=== PATIENT | male | born 1960 | race Caucasian/White ===

== ENCOUNTER → 2016-11-25 | Outpatient (CLI) | payer BC ==
[2016-11-25 09:35] LABS: BASO % 0.6 %; BASO ABS # 0.03 K/uL (0-0.2); COMPLETE YES; EOS % 7.2 %; HEMATOCRIT 44.1 % (42-52); IG% 0.2 %; LYMPH % 36.6 %; LYMPH ABS # 1.97 K/uL (1.2-3.4); MEAN CELL VOLUME 83.8 fL (80-100); MEAN CORPUSCULAR HGB CONC 35.8 g/dl (32-36); MONO % 8.7 %; NEUT % 46.7 %; PLATELET COUNT 211 K/uL (130-400); RED BLOOD COUNT 5.26 M/uL (4.7-6.1); WHITE BLOOD COUNT 5.38 K/uL (4.8-10.8)
[2016-11-25 09:56] LABS: ALT/SGPT 32 U/L (12-78); AST/SGOT 33 U/L (15-37); BLOOD UREA NITROGEN 19 mg/dl (7-18); BUN/CREATININE RATIO 16.2 (10-20); CALCIUM 8.7 mg/dl (8.5-10.1); CARBON DIOXIDE 26 mmol/L (21-32); CHLORIDE 109 mmol/L (98-107); CHOLESTEROL 136 mg/dl (0-200); GLUCOSE 90 mg/dl (70-99); POTASSIUM 4.3 mmol/L (3.5-5.1); SODIUM 142 mmol/L (136-145)
[2016-11-25 10:00] LABS: ALB/GLOB RATIO 1.2 (0.9-2); ALKALINE PHOSPHATASE 84 U/L (45-117); CHOLESTEROL/HDL RATIO 3.1; HDL CHOLESTEROL 44 mg/dl; LDL CHOLESTEROL CALCULATED 77 mg/dl; TRIGLYCERIDES 77 mg/dl (0-150); VERY LOW DENSITY LIPOPROT CALC 15 mg/dl
== END | disposition home or self-care (01) ==
LOC: C.LAB 07:59
PROVIDERS: ATTEND Internal Medicine
DX: Z12.5 Encounter for screening for malignant neoplasm of prostate (principal); E78.5 Hyperlipidemia, unspecified

== ENCOUNTER → 2016-11-28 | Outpatient (CLI) | payer BC ==
[~2016-11-28] MED LIST: OPTIRAY 320 IV PRN
--- NOTE | 2016-11-28 14:08 | DIAGNOSTIC IMAGING REPORT ---
ABDOMEN AND PELVIS CT WITH IV AND ORAL CONTRAST CT DOSE: 531.37 mGycm HISTORY: Pain pelvic pain TECHNIQUE: Multiaxial CT images of the abdomen and pelvis were performed following the use of intravenous and oral contrast. COMPARISON STUDY: None. FINDINGS: Lung bases are clear. Liver spleen and pancreas appear unremarkable. Gallbladder is negative for distention. Kidneys enhance uniformly. There are negative for necrosis. The adrenal glands are unremarkable. Bowel pattern is nonobstructive no findings of mild sigmoid diverticulitis. There is no evidence for abscess collection or obstruction. There is no free fluid within the pelvic cul-de-sac. IMPRESSION: Mild acute sigmoid diverticulitis. No evidence for abscess collection or obstruction. Electronically signed by: Moe Noble M.D. 11/28/2016 2:07 PM Dictated Date/Time: 11/28/2016 2:04 PM
== END | disposition home or self-care (01) ==
LOC: C.CTS 11:29
PROVIDERS: ATTEND Internal Medicine Geriatric Medicine
DX: R10.9 Unspecified abdominal pain (principal)

== ENCOUNTER → 2016-12-14 | Outpatient (CLI) | payer BC | END | disposition home or self-care (01) | LOC: C.LABBC 09:01 | PROVIDERS: ATTEND Internal Medicine | DX: Z11.59 Encounter for screening for other viral diseases (principal) ==

== ENCOUNTER → 2017-08-08 | Day surgery (SDC) | payer BC ==
[2017-07-26 13:54] VITALS: Ht 182.9 cm; Wt 80.9 kg
[~2017-08-08] VITALS: Ht 182.9 cm; Wt 80.9 kg
[~2017-08-08] MED LIST changes: +ATOR10TA88 PO; +LIDOCAINE HCL 2% 2 ML VIAL (20MG/ML) ONE; +MIDAZOLAM HCL 1 MG/ML 2ML VIAL ONE; +MULTTAB58 PO; +OMEG10007 PO; -OPTIRAY 320 IV PRN; +PROPOFOL IV EMULSION 10 MG/ML 20 ML VIAL IV ONE; +SODIUM CHLORIDE 0.9% 500ML 500 ML IV ONE
--- NOTE | 2017-08-08 08:44 | Endo History and Physical ---
History & Physical Date of Service: Aug 08, 2017. Chief Complaint: diverticulitis,screening Referring Physician: Dr. Bhupinder El History of Present Illness 57 yo CM who presents for colonoscopy secondary to diverticulitis. Past Surgical History Hx Cardiac Surgery: No Hx Internal Defibrillator: No Hx Pacemaker: No Hx Abdominal Surgery: No Hx of Implantable Prosthesis: No Hx Post-Op Nausea and Vomiting: No Hx Cancer Surgery: Yes (SKIN CANCER REMOVALS) Hx Thoracic Surgery: No Hx Orthopedic: Yes (RT SHOULDER X2) Hx Urinary Tract Surgery: No Family History None Social History Smoking Status: Never Smoker Hx Substance Use: No Hx Alcohol Use: No Allergies Coded Allergies: No Known Allergies (Verified , 08/08/17) Current Medications Reported Home Medications Medications Dose Route/Sig Max Daily Dose Days Date Category [place]-3 (Fish Oil) 1 Ea Cap 1 Cap PO DAILY 07/26/17 Reported Multivitamin (Multiple Vitamin) 1 Tab Tab 1 Tab PO DAILY 07/26/17 Reported Lipitor (Atorvastatin Calcium) 10 Mg Tab 10 Mg PO HS 07/26/17 Reported Vital Signs Weight (Kilograms): 80.91 Height (Feet): 6 Height (Inches): 0 Date Time Temp Pulse Resp B/P (MAP) Pulse Ox O2 Delivery O2 Flow Rate FiO2 08/08/17 08:18 36.8 66 20 124/77 (93) 99 Room Air Physical Exam General Appearance: WD/WN, no apparent distress Respiratory/Chest: Auscultation: breath sounds normal Cardiovascular: Heart Auscultation: RRR Abdomen: Bowel Sounds: normal Inspection & Palpation: soft, non-distended, no tenderness, guarding & rebound Assessment and Plan Assessment: 57 yo CM who presents for colonoscopy secondary to diverticulitis. Plan: Proceed with colonoscopy.
--- NOTE | 2017-08-08 09:13 | GI REPORT ---
Procedure Date: 08/08/2017 8:49 AM Procedure: Colonoscopy Indications: Follow-up of diverticulitis Medicines: Monitored Anesthesia Care Complications: No immediate complications. Estimated Blood Loss: Estimated blood loss: none. Procedure: Pre-Anesthesia Assessment: - Prior to the procedure, a History and Physical was performed, and patient medications and allergies were reviewed. The patient's tolerance of previous anesthesia was also reviewed. The risks and benefits of the procedure and the sedation options and risks were discussed with the patient. All questions were answered, and informed consent was obtained. Prior Anticoagulants: The patient has taken no previous anticoagulant or antiplatelet agents. ASA Grade Assessment: II - A patient with mild systemic disease. After reviewing the risks and benefits, the patient was deemed in satisfactory condition to undergo the procedure. After I obtained informed consent, the scope was passed under direct vision. Throughout the procedure, the patient's blood pressure, pulse, and oxygen saturations were monitored continuously. The scope was introduced through the anus and advanced to the terminal ileum. The colonoscopy was performed without difficulty. The patient tolerated the procedure well. The quality of the bowel preparation was good. The terminal ileum, the appendiceal orifice and the rectum were photographed. Findings: Multiple small-mouthed diverticula were found in the sigmoid colon. Non-bleeding internal hemorrhoids were found during retroflexion. The hemorrhoids were small. Impression: - Diverticulosis in the sigmoid colon. - Non-bleeding internal hemorrhoids. - No specimens collected. Recommendation: - Resume previous diet. - Continue present medications. - Repeat colonoscopy in 10 years for surveillance. - Return to primary care physician as previously scheduled. Marino Marquez, 08/08/2017 9:12:52 AM This report has been signed electronically. Note Initiated On: 08/08/2017 8:49 AM I attest to the content of the Intraoperative Record and orders documented therein, exceptions below
--- NOTE | 2017-08-08 09:17 | Discharge Instructions ---
Endoscopy Patient Instructions Date / Procedure(s) Performed Aug 08, 2017. Colonoscopy Allergy Information Coded Allergies: No Known Allergies (Verified , 08/08/17) Discharge Date / Findings Aug 08, 2017. Diverticulosis Internal hemorrhoids Medication Instructions Stopped Medication(s): stopped MVI and Fish oil on Monday OK to resume all medications today as prescribed Reported Home Medications Medications Dose Route/Sig Max Daily Dose Days Date Category [place]-3 (Fish Oil) 1 Ea Cap 1 Cap PO DAILY 07/26/17 Reported Multivitamin (Multiple Vitamin) 1 Tab Tab 1 Tab PO DAILY 07/26/17 Reported Lipitor (Atorvastatin Calcium) 10 Mg Tab 10 Mg PO HS 07/26/17 Reported Provider Instructions Activity Restrictions - No exercising or heavy lifting for 24 hours. - Do not drink alcohol the day of the procedure. - Do not drive a car or operate machinery until the day after the procedure. - Do not make any important decisions or sign important papers in 24 hours after the procedure. Following Day: - Return to full activity which may include returning to work/school. Diet Start your diet with liquids and light foods (jello, soup, juice, toast). Then eat your usual diet if not nauseated. Treatment For Common After Affects For mild abdominal pain, bloating, or excessive gas: - Rest - Eat lightly - Lie on right side Follow-Up Information Follow-up with Dr. Bhupinder El as scheduled Anesthesia Information What You Should Know You have had a procedure that required some medicine to reduce anxiety and discomfort. This treatment is called moderate sedation. After receiving the treatment, you may be sleepy, but you will be able to breathe on your own. The effects of the treatment may last for several hours. Follow these instructions along with Activity/Diet recommendations noted above: * Do NOT do anything where dizziness or clumsiness would be dangerous. * Rest quietly at home today, then you can be up and about tomorrow. * Have a responsible person stay with you the rest of today. * You may have had an I.V. today. If so, you may take the dressing off later today. Recommendations Call your doctor if: * Trouble breathing * Continuous vomiting for more than 24 hours * Temperature above 101 degrees * Severe abdominal pain or bloating * Pain not relieved by pain medicine ordered * There is increased drainage or redness from any incision * A large amount of rectal bleeding greater than 2-3 tablespoons. (If you had a polyp/s removed or have hemorrhoids, a small amount of blood - from the rectum is to be expected.) * You have any unanswered questions or concerns. IN THE EVENT OF A SERIOUS EMERGENCY, GO TO THE NEAREST EMERGENCY ROOM Your discharge instructions were prepared by provider Marino Marquez. Patient Instructions Signature Page Abbe Fry Patient (or Guardian) Signature/Date: I have read and understand the instructions given to me by my caregivers. Caregiver/RN/Doctor Signature/Date: The above-named patient and/or guardian has received patient instructions on this date. + Original Patient Signature Page (only) stays with chart. Please make copy for patient.
--- NOTE | 2017-08-08 09:34 | Anesthesiology Progress Note ---
Anesthesia Post Op Note Date & Time Aug 08, 2017 at 09:34 Vital Signs Pain Intensity: 0 Vital Signs Past 12 Hours Date Time Temp Pulse Resp B/P (MAP) Pulse Ox O2 Delivery O2 Flow Rate FiO2 08/08/17 09:25 78 16 104/73 (83) 96 Room Air 08/08/17 09:10 68 16 108/69 (82) 96 Room Air 08/08/17 08:18 36.8 66 20 124/77 (93) 99 Room Air Notes Mental Status: alert / awake / arousable, participated in evaluation Pt Amnestic to Procedure: Yes Nausea / Vomiting: adequately controlled Pain: adequately controlled Airway Patency, RR, SpO2: stable & adequate BP & HR: stable & adequate Hydration State: stable & adequate Anesthetic Complications: no major complications apparent
[2017-08-08 09:40] VITALS: BP 117/77; PULSE 73; O2SAT 97
== END | disposition home or self-care (01) ==
LOC: C.GI 07:57
PROVIDERS: ATTEND Internal Medicine
DX: K57.30 Diverticulosis of large intestine without perforation or abscess without bleeding (principal); K64.8 Other hemorrhoids; Z87.19 Personal history of other diseases of the digestive system

== ENCOUNTER → 2017-08-21 | Outpatient (CLI) | payer BC ==
[~2017-08-21] MED LIST changes: +ATOR10TA82 PO; -ATOR10TA88 PO; -LIDOCAINE HCL 2% 2 ML VIAL (20MG/ML) ONE; -MIDAZOLAM HCL 1 MG/ML 2ML VIAL ONE; -PROPOFOL IV EMULSION 10 MG/ML 20 ML VIAL IV ONE; -SODIUM CHLORIDE 0.9% 500ML 500 ML IV ONE
[2017-08-21 17:09] LABS: BASO % 0.6 %; BASO ABS # 0.05 K/uL (0-0.2); COMPLETE YES; EOS % 3.5 %; HEMATOCRIT 44.9 % (42-52); IG% 0.4 %; LYMPH % 29.2 %; LYMPH ABS # 2.33 K/uL (1.2-3.4); MEAN CORPUSCULAR HEMOGLOBIN 30.7 pg (25-34); MEAN CORPUSCULAR HGB CONC 36.1 g/dl (32-36); MEAN PLATELET VOLUME 11.3 fL (7.4-10.4); MONO % 8.5 %; NEUT % 57.8 %; PLATELET COUNT 203 K/uL (130-400); RED BLOOD COUNT 5.28 M/uL (4.7-6.1); WHITE BLOOD COUNT 7.99 K/uL (4.8-10.8)
[2017-08-21 17:16] LABS: URINE APPEARANCE CLEAR (CLEAR); URINE BILIRUBIN NEG (NEG); URINE COLOR YELLOW; URINE NITRITE NEG (NEG); URINE PH 6.5 (4.5-7.5); URINE SPECIFIC GRAVITY 1.014 (1.000-1.030); UROBILINOGEN NEG (NEG)
[2017-08-21 17:16] LABS: BLOOD UREA NITROGEN 18 mg/dl (7-18); BUN/CREATININE RATIO 18.4 (10-20); CALCIUM 9.4 mg/dl (8.5-10.1); CARBON DIOXIDE 28 mmol/L (21-32); CHLORIDE 106 mmol/L (98-107); GLUCOSE 87 mg/dl (70-99); SODIUM 140 mmol/L (136-145)
[2017-08-21 17:25] LABS: MANUAL MICROSCOPIC REQUIRED? NO; REVIEW REQ? NO
== END | disposition home or self-care (01) ==
LOC: C.LABBC 12:39
PROVIDERS: ATTEND Physician Assistant
DX: R39.9 Unspecified symptoms and signs involving the genitourinary system (principal)

== ENCOUNTER → 2017-11-30 | Outpatient (CLI) | payer BC | END | disposition home or self-care (01) | LOC: C.PATHSPEC 16:58 | PROVIDERS: ATTEND Physician Assistant | DX: B07.9 Viral wart, unspecified (principal); D36.12 Benign neoplasm of peripheral nerves and autonomic nervous system, upper limb, including shoulder ==

== ENCOUNTER → 2017-12-16 | Outpatient (CLI) | payer BC ==
[2017-12-16 07:00] LABS: BASO % 0.4 %; BASO ABS # 0.02 K/uL (0-0.2); EOS % 3.8 %; HEMATOCRIT 44.9 % (42-52); HEMOGLOBIN 16.3 g/dL (14.0-18.0); IG# 0.02 K/uL (0.00-0.02); LYMPH % 35.7 %; MEAN CELL VOLUME 82.8 fL (80-100); MEAN CORPUSCULAR HEMOGLOBIN 30.1 pg (25-34); MEAN CORPUSCULAR HGB CONC 36.3 g/dl (32-36); MEAN PLATELET VOLUME 9.5 fL (7.4-10.4); MONO % 11.7 %; MONO ABS # 0.62 K/uL (0.11-0.59); NEUT ABS # 2.56 K/uL (1.4-6.5); PLATELET COUNT 174 K/uL (130-400); RED CELL DISTRIBUTION WIDTH CV 14.2 % (11.5-14.5); RED CELL DISTRIBUTION WIDTH SD 43.1 fL (36.4-46.3); WHITE BLOOD COUNT 5.32 K/uL (4.8-10.8)
[2017-12-16 07:40] LABS: ALBUMIN 3.7 gm/dl (3.4-5.0); ALT/SGPT 39 U/L (12-78); AST/SGOT 35 U/L (15-37); BLOOD UREA NITROGEN 22 mg/dl (7-18); CARBON DIOXIDE 29 mmol/L (21-32); CHOLESTEROL 128 mg/dl (0-200); CREATININE 1.03 mg/dl (0.60-1.40); GLUCOSE 86 mg/dl (70-99); POTASSIUM 4.3 mmol/L (3.5-5.1); SODIUM 139 mmol/L (136-145)
[2017-12-16 07:43] LABS: ALKALINE PHOSPHATASE 96 U/L (45-117); LDL CHOLESTEROL CALCULATED 67 mg/dl; TOTAL PROTEIN 7.3 gm/dl (6.4-8.2)
== END | disposition home or self-care (01) ==
LOC: C.LAB 06:43
PROVIDERS: ATTEND Internal Medicine
DX: Z00.00 Encounter for general adult medical examination without abnormal findings (principal); E78.5 Hyperlipidemia, unspecified; Q23.1 Congenital insufficiency of aortic valve; I35.1 Nonrheumatic aortic (valve) insufficiency; D23.9 Other benign neoplasm of skin, unspecified; M54.6 Pain in thoracic spine; Z12.5 Encounter for screening for malignant neoplasm of prostate

== ENCOUNTER 2020-06-09 16:21 | Observation (INO) ==
--- NOTE | 2020-06-09 17:19 | XRay Report ---
XR chest 1V portable HISTORY: Preop. Generalized abdominal pain. Abnormal CT. COMPARISON: Chest 06/11/2013 FINDINGS: The lungs are clear. Cardiac silhouette is normal in size. No pleural effusions. No pneumot horax. Severe osteoarthritis within the right shoulder 6 again noted. Stable 1 cm sclerotic focus wit hin the left lung apex which is likely associated with the overlapping first rib. IMPRESSION: No significant change compared to the prior study. No acute process. ACT 112: Negative or not required by law. Electronically signed by: Saturnino Mahan M.D. 06/09/2020 5:18 PM
--- NOTE | 2020-06-09 17:42 | Emergency Department Note ---
History of Present Illness General Chief complaint: Abnormal Labs/Diagnostic Testing Stated complaint: PT SENT BY DR GALL BLADDER Time Seen by Provider: 06/09/20 16:49 Source: patient Mode of arrival: ambulatory Limitations: no limitations History of Present Illness Provider complaint: Abdominal pain Onset (ago): day(s) 2 Location: abdomen Radiation: non-radiation Severity: moderate Pain Consistency: + intermittent Maximum Pain Intensity: 6 Current Pain Intensity: 6 Quality: + aching and + sharp Relieved By: + none Exacerbated By: + none Treatments prior to arrival: none This 59-year-old male patient with significant past medical history of iron deficiency anemia, dyslipidemia, bicuspid aortic valve, esophageal dysphasia, presents to the emergency department today via private vehicle as a referral from his PCP for evaluation of acute cholecystitis noted on outpatient CT imaging completed earlier today. Patient states 2 nights ago, he had [employer] pepperoni and beef pizza for dinner. Yesterday morning, he awoke with right upper quadrant abdominal pain. He was able to tolerate eating cereal with berries and golfed 18 holes yesterday, but continued to develop worsening pain in the afternoon and evening. He did eat ground turkey, peas, and applesauce at approximately 530 yesterday evening and went to bed after taking some Pepto- Bismol. Overnight, the pain progressively worsened and this morning when he awoke, he was experiencing a more severe aching pain, unable to tolerate breakfast. He scheduled an appointment with his PCP, and was seen as an outpatient, when he had labs and an outpatient CT scan completed. The patient was then contacted by his PCP due to positive CT findings for acute cholecystitis and recommendation made for general surgery referral. The patient denies any associated chest pain or dyspnea. There has been some nausea, but no vomiting. No recent diarrhea or constipation. He does report some "almost black" stool, but is on chronic iron supplementation. He denies any associated fever. He was able to eat chicken and applesauce at approximately noon today after his CT scan was completed and tolerated these foods without difficulty. Home Medications Home Medications Medication Instructions Recorded Confirmed Type multivitamin 1 tab PO QAM 02/13/19 06/09/20 History pravastatin 40 mg PO HS 04/11/20 06/09/20 History pantoprazole 40 mg tablet,delayed See Rx Instructions .ROUTE 05/04/20 06/09/20 Rx release .COMPLEX #180 tablet [place] 3 Pack 1 pkg PO DAILY 06/09/20 06/09/20 History ferrous sulfate 325 mg (65 mg 325 mg PO DAILY tab 06/09/20 06/09/20 History iron) tablet Allergies Allergy/AdvReac Type Severity Reaction Status Date / Time No Known Allergies Allergy Verified 06/09/20 10:17 Past Med/Surg History Medical History Bicuspid aortic valve Cancer BCC AND [facility] Cardiac murmur FOLLOWED BY DR. FORMAN Degenerative disc disease Dyslipidemia Esophageal web 15 YEARS AGO DIAGNOSED Family history of prostate cancer Iron deficiency anemia Osteoarthritis Recurrent skin cancer Surgical History History of anesthesia reaction SLOW TO WAKE UP History of colonoscopy History of esophagogastroduodenoscopy (EGD) Hx of LASIK RT EYE Hx of shoulder surgery RT Family History Mother GERD (gastroesophageal reflux disease) Social History Smoking Status: Never smoker Second Hand Exposure: No; Hx Alcohol Use: Yes Hx Substance Use: No Preferred Language: Wallisian Communication Ability: Effective Visual Impairment: No Limitations Hearing Ability: Normal Automatic Pattern Edger Required: No Beliefs That Will Affect Care: None marital status: Single Current Living Situation: Alone current occupational status: retired Other Information That Helps Us Care for You: No Feels Safe at Home: Yes Safety Concerns: Feels Safe At This Time Childhood Exposure to Second-Hand Smoke: Yes caffeine: Yes Dental Care, Regularly: Yes Physical Activity Frequency: 5-6 Times per Week Seatbelt Use: always Sunscreen Use: Yes Review of Systems A total of 10 systems reviewed and were otherwise negative Physical Exam Vital Signs Vital Signs - 24 hr 06/09/20 16:24 06/09/20 18:00 Temperature 36.9 C Temperature Source Oral Pulse Rate 80 Pulse Rate [Right Finger] 68 Respiratory Rate 18 20 Respiratory Effort / Characteristics Non-Labored Respiratory Depth Normal Blood Pressure 148/87 H Blood Pressure [Left Arm] 126/80 Blood Pressure Mean 107 Blood Pressure Mean [Left Arm] 95 Pulse Oximetry 99 98 Oxygen Delivery Method Room Air Sepsis Recent Fever Within 48 Hours No Sepsis New/Unexplained Change in Mental Status No Sepsis Action Taken by Nursing No Action Required VITALS: Vitals are noted on the nurse's note and reviewed by myself. Vital signs stable. GENERAL: This is a 59-year-old white male, in no acute distress, nondiaphoretic, well-developed well-nourished. SKIN: The skin was without rashes, erythema, edema, or bruising. There is no tenting of the skin. Capillary refill less than 2 seconds. HEAD: Normocephalic atraumatic. EYES: Conjunctivae without injection, sclerae without icterus. NECK: Supple without nuchal rigidity. No lymphadenopathy. HEART: Regular rate and rhythm without murmurs gallops or rubs. LUNGS: Clear to auscultation bilaterally without wheezes, rales or rhonchi. No retractions or accessory muscle use. ABDOMEN: Positive bowel sounds x 4. Normal tympanic percussion. Epigastric and right upper quadrant tenderness palpation. Abdomen is otherwise soft, nontender, without masses or organomegaly. Wilson sign positive. No guarding or rebound tenderness. MUSCULOSKELETAL: No muscle atrophy, erythema, or edema noted. Full range of motion without joint tenderness in all extremities. No tenderness to palpation. Normal gait. Strength 5/5 throughout. NEURO: Patient was alert and oriented to person place and time. No focal neurological deficits. Course Course The patient was seen and evaluated as above. Outpatient work-up including labs and CT imaging reviewed. An order was placed for continuous cardiac monitoring. The monitor shows a normal sinus rhythm at a rate of 80 bpm. IV access obtained, labs drawn. Imaging performed and reviewed by myself and radiologist as noted. Labs reviewed by myself. I discussed case with Dr. Pierre. He will admit the patient overnight, repeat LFTs in the morning, will likely take the patient for cholecystectomy tomorrow morning. He will see the patient. I discussed the recommendations with the patient at bedside. I discussed case with the client solutions manager. Administered Medications Lactated Ringer's (Lr) 1,000 mls @ 125 mls/hr IV .Q8H MILES Stop: 07/09/20 19:48 Last Admin: 06/09/20 20:51 Dose: 125 mls/hr Documented by: [id number] Cefazolin Sodium (Ancef 2000mg) 2,000 mg in 15 mls @ 3.75 mls/min IV Q8H [facility]; Protocol Stop: 06/19/20 20:59 Last Admin: 06/09/20 20:54 Dose: 3.75 mls/min Documented by: [id number] Medical Decision Making Differential Diagnosis Etiologies such as appendicitis, diverticulitis, obstruction, inflammatory bowel disease, renal colic, PUD, biliary pathology, pancreatitis, mesenteric ischemia, aortic pathology, infections, genitourinary, UTI, perforated viscus, as well as others were entertained. Medical Records Attestation: I reviewed the patient's medical records. ABDOMEN AND PELVIS CT WITH ORAL CONTRAST CT DOSE: 410.99 mGy.cm HISTORY: Left-sided abdominal pain. K92.1 - Melena TECHNIQUE: Multiaxial CT images of the abdomen and pelvis were performed following the use of oral contrast. A dose lowering technique was utilized adhering to the principles of ALARA. COMPARISON STUDY: Abdomen and pelvis CT 11/28/2016. FINDINGS: Punctate calcified granuloma within the left lower lobe. Otherwise, lungs are clear. No pneumoperitoneum. No pneumatosis. No suspicious lytic are blastic osseous lesions. The unenhanced liver, spleen, adrenal glands, pancreas, and kidneys are unremarkable. No renal or ureteral stones. No hydronephrosis. The bladder is unremarkable. The prostate gland is mildly enlarged. No retroperitoneal lymphadenopathy. Normal caliber abdominal aorta. There is a left circumaortic renal vein. The gallbladder is mildly distended. This mild gallbladder wall thickening and pericholecystic inflammatory change. Therefore, these findings are suspicious for acute cholecystitis. No bowel wall thickening or obstruction. Normal appendix. Colonic diverticulosis. No evidence for acute diverticulitis. A 1.7 cm subcutaneous cyst within the right lower back. This favors a sebaceous cyst. This is increased in size from the prior study. IMPRESSION: 1. Mildly distended gallbladder with associated gallbladder wall thickening and mild pericholecystic inflammatory change. Therefore, these findings are suspicious for an acute cholecystitis. Surgical consultation recommended. 2. No bowel wall thickening or obstruction. 3. Normal appendix. 4. Colonic diverticulosis. No evidence for diverticulitis. 5. No renal or ureteral stones. No hydronephrosis. 6. These findings were immediately called/faxed to the referring physician following dictation. ACT 112: Positive. There are findings on this exam that require communication between the performing entity and the patient following Patient Test Result Info rmation Act ([place] Act 112) guidelines. Electronically signed by: Saturnino Mahan M.D. 06/09/2020 3:09 PM Home Medications Current Medication List: was personally reviewed by me Laboratory Data Attestation: I reviewed the patient's lab results. Outpatient labs reviewed. No leukocytosis or significant anemia. No thrombocytopenia. Renal function electrolytes without significant abnormality. Total bilirubin mildly elevated at 1.2. Otherwise, LFTs without significant abnormality. Lab Results 06/09/20 06/09/20 06/09/20 Range/Units 17:21 17:21 18:24 PT Cancelled 11.0 INR Cancelled 1.0 APTT Cancelled 27.4 PTT Ratio Cancelled 1.0 Lipase 156 (73-393) U/L Imaging Data Radiologist's Impression: XR chest 1V portable HISTORY: Preop. Generalized abdominal pain. Abnormal CT. COMPARISON: Chest 06/11/2013 FINDINGS: The lungs are clear. Cardiac silhouette is normal in size. No pleural effusions. No pneumothorax. Severe osteoarthritis within the right shoulder 6 again noted. Stable 1 cm sclerotic focus within the left lung apex which is likely associated with the overlapping first rib. IMPRESSION: No significant change compared to the prior study. No acute process. ACT 112: Negative or not required by law. Electronically signed by: Saturnino Mahan M.D. 06/09/2020 5:18 PM ECG Data Attestation: I personally reviewed and interpreted this ECG as follows: Indication: + other (pre-op) Rate (beats per minute): 71 Rhythm: + normal sinus ECG ST segments: no ST depression, no ST elevation and no T-wave inversions Comparison ECG Date: from (07/19/2005) Change: no significant change Blood Pressure Blood Pressure Findings: Elevated blood pressure Blood Pressure Disposition: elevated BP felt to be situational MDM Narrative This 59-year-old male patient sent to the emergency department today for evaluation of acute cholecystitis noted on outpatient CT imaging. Patient is very comfortable while here in the department. I did review his outpatient labs and imaging as noted. Symptoms and work-up most consistent with acute cholecystitis, surgical consultation recommended. I did consult with the general surgeon, Dr. Pierre. He did agree to admit the patient overnight will likely take him to the OR in the morning. Preoperative labs and x-ray as well as EKG completed. Please see general surgery dictation regarding ongoing management care of this patient. The chart was completed utilizing [employer] Speech voice recognition software. Grammatical errors, random word insertions, pronoun errors, and incomplete sentences are an occasional consequence of this system due to software limitations, ambient noise, and hardware issues. Any formal questions or co ncerns about the content, text, or information contained within the body of this dictation should be directly addressed to the provider for clarification. Impression & Plan Acute cholecystitis Discharge Plan Visit Data Chief Complaint: Abnormal Labs/Diagnostic Testing Stated Complaint: PT SENT BY , GALL BLADDER ED Provider: Fred Machado ED Midlevel Provider: Jania Lopez Discharge Problem: Acute cholecystitis Patient Disposition: Admitted As Inpatient Discharge Instructions Interventions: ED Discharge Assessment Last Done: 06/09/20 19:25
[2020-06-09 18:52] LABS: Partial Thromboplastin Time 27.4 Seconds (21.0-31.0)
[2020-06-09] MEDS ORDERED: ACETAMINOPHEN 1,000 MG/100 ML VIAL IV PRN (19:49)
[2020-06-09] MEDS ORDERED: HYDROmorphone INJ 1 MG/ML SYRINGE IV PRN (19:49)
[2020-06-09] MEDS: LACTATED RINGER'S 1,000 ML IV SCH (20:51)
[2020-06-09] MEDS: CEFAZOLIN 2000MG 2,000 MG/15 ML SYR IV SCH (20:54)
--- NOTE | 2020-06-09 21:01 | History & Physical Report ---
Date of Service June 09, 2020 Assessment & Plan (1) Acute cholecystitis: -admit to hospital -IVF for hydration -analgesics & antiemetics will be ordered -commence antibiotics -will repeat labs in am and if bilirubin is elevated further will enlist the assistance of GI for possiblel ERCP -pt. will be kept npo in anticipation of surgery +/- ERCP tomorrow -possible procedures, risks, benefits, alternative discussed with pt. 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 He denies fevers, shakes, chills. No N/V. He notes a poor apatite since pain began. No palliative or provocative factors noted. The pain does not radiate. He denies weight loss. No earlier satiety. He does note some loose BMS recently. Today, labs show no leukocytosis or elevation of LFTs except a slight elevation of his bilirubin. he had a CT scan of the abdomen that showed a distended GB with pericholecystic fluid concerning for cholecystitis. He was afebrile and in no distres at the saqib eof my exam. Allergies Allergy/AdvReac Type Severity Reaction Status Date / Time No Known Allergies Allergy Verified 06/09/20 10:17 Home Medications Home Medications Medication Instructions Recorded Confirmed Type multivitamin 1 tab PO QAM 02/13/19 06/09/20 History pravastatin 40 mg PO HS 04/11/20 06/09/20 History pantoprazole 40 mg tablet,delayed See Rx Instructions .ROUTE 05/04/20 06/09/20 Rx release .COMPLEX #180 tablet [place] 3 Pack 1 pkg PO DAILY 06/09/20 06/09/20 History ferrous sulfate 325 mg (65 mg 325 mg PO DAILY tab 06/09/20 06/09/20 History iron) tablet Past Med/Surg History Medical History Bicuspid aortic valve Cancer BCC AND SCC Cardiac murmur FOLLOWED BY DR. FORMAN Degenerative disc disease Dyslipidemia Esophageal web 15 YEARS AGO DIAGNOSED Family history of prostate cancer Iron deficiency anemia Osteoarthritis Recurrent skin cancer Surgical History History of anesthesia reaction SLOW TO WAKE UP History of colonoscopy History of esophagogastroduodenoscopy (EGD) Hx of LASIK RT EYE Hx of shoulder surgery RT Family History Mother GERD (gastroesophageal reflux disease) Social History Smoking Status: Never smoker Second Hand Exposure: No; Hx Alcohol Use: Yes Hx Substance Use: No Preferred Language: Albanian Communication Ability: Effective Visual Impairment: No Limitations Hearing Ability: Normal Md Psychiatry Required: No Beliefs That Will Affect Care: None marital status: Single Current Living Situation: Alone current occupational status: retired Other Information That Helps Us Care for You: No Feels Safe at Home: Yes Safety Concerns: Feels Safe At This Time Childhood Exposure to Second-Hand Smoke: Yes caffeine: Yes Dental Care, Regularly: Yes Physical Activity Frequency: 5-6 Times per Week Seatbelt Use: always Sunscreen Use: Yes Review of Systems Constitutional: no fever and no chills Eyes: no diplopia Ear, Nose, Mouth, Throat: no ear pain Respiratory: no cough and no dyspnea Cardiovascular: no chest pain Gastrointestinal: + abdominal pain and + diarrhea/loose stools; no early satiety, no nausea and no vomiting Genitourinary: no dysuria Musculoskeletal: no back pain Integumentary: no rash Neurologic: no localized weakness Physical Exam Constitutional: well developed and well nourished; no acute distress Eyes: + anicteric sclerae ENMT: Ears: no hearing impairment no sublingual jaundice Neck: trachea midline Respiratory: normal respiratory effort, lungs clear to auscultation Cardiovascular: Rate/Rhythm: regular rate and regular rhythm Gastrointestinal (Abdomen): Inspection/Auscultation: + abdomen distended (slight) and normal bowel sounds Percussion/Palpation: + abdomen tender (RUQ); no guarding Musculoskeletal: no calf pain Skin: no rashes, warm and dry normal turgor; no jaundice Neurologic: moves all extremities Results & Data Results & Data ([facility]) Vital Signs (Past 12 Hours) Vital Signs Temp Pulse Pulse Resp BP BP Pulse Ox 06/09/20 19:40 36.7 C 63 14 145/79 H 98 08/25/20 18:00 68 20 126/80 98 06/09/20 16:24 36.9 C 80 18 148/87 H 99 Code Status & VTE Plan VTE Prophylaxis Plan VTE Prophylaxis will be ordered: Yes PG Care Time/CCT Total # of Minutes Spent Total Time Spent with Patient: Total time spent is greater than 50% in coordination of care (as documented) at patient's floor/unit and/or counseling patient: Coding Level of Care Code 62628 Initial Inpt Care Lvl 3 Diagnoses Acute cholecystitis K81.0
[2020-06-10] MEDS: LACTATED RINGER'S 1,000 ML IV SCH ×4 (04:47→21:57)
[2020-06-10] MEDS: CEFAZOLIN 2000MG 2,000 MG/15 ML SYR IV SCH ×2 (04:51→11:36)
[2020-06-10 07:20] LABS: Albumin Level 3.1 gm/dl (3.4-5.0); Bilirubin Direct 0.2 mg/dl (0-0.2); Bilirubin,Total 1.2 mg/dl (0.2-1); Total Protein 6.6 gm/dl (6.4-8.2)
--- NOTE | 2020-06-10 07:53 | Electrocardiogram Report ---
Test Reason : Blood Pressure : / mmHG Vent. Rate : 071 BPM Atrial Rate : 071 BPM P-R Int : 128 ms QRS Dur : 088 ms QT Int : 388 ms P-R-T Axes : 052 029 027 degrees QTc Int : 421 ms Normal sinus rhythm Normal ECG When compared with ECG of 19-JUL-2005 07:07, No significant change was found Confirmed by Stew Cota ([id number]) on 06/10/2020 7:52:59 AM Referred By: Sonia Gonzalez Confirmed By:Stew Cota
--- NOTE | 2020-06-10 08:01 | Surgery Progress Note ---
Date of Service June 10, 2020 Assessment & Plan (1) Acute cholecystitis: LFTs this morning did not bump. His direct bilirubin is normal. Total bilirubin is 1.2. We discussed his options. The recommendation is to proceed with laparoscopic possible open cholecystectomy. We discussed his other options. We discussed the risks of the surgery which would include bleeding, infection, injury to another organ such as small bowel liver bile ducts etc., bile leaks, DVT, PE, DC, CVA etc. Following our discussion I answered all of his questions. He agrees and we will proceed this morning with laparoscopic/possible open cholecystectomy. Admission and Anticipated Discharge Date Admission Date: June 09, 2020 Subjective Patient seen. Feels about the same as yesterday no worse no better. Physical Exam Constitutional: WD/WN, vitals as above no acute distress and not ill appearing Eyes: PERRL, conjunctivae normal, anicteric sclerae EOM intact bilaterally ENMT: external ear and nose normal, oropharynx normal Ears: no hearing impairment Neck: trachea midline, no thyromegaly Respiratory: normal respiratory effort; no respiratory distress and does not use accessory muscles Cardiovascular: Rate/Rhythm: regular rate and regular rhythm Gastrointestinal (Abdomen): Abdomen is soft. Positive right upper quadrant tenderness to palpation as well as epigastric tenderness to palpation. No peritoneal signs. Skin: no rashes, warm and dry Psychiatric: Orientation: alert, oriented x 3 and cooperative Results & Data ([facility]) Vital Signs (Past 12 Hours) Vital Signs Temp Pulse Resp BP Pulse Ox 06/10/20 07:23 36.6 C 68 18 137/88 97 06/09/20 22:55 36.6 C 57 L 14 126/70 96 PG Care Time/CCT Total # of Minutes Spent Total Time Spent with Patient: Total time spent is greater than 50% in coordination of care (as documented) at patient's floor/unit and/or counseling patient: Coding Level of Care Code 96871 Subseq Obs Care Lvl 3 Diagnoses Acute cholecystitis K81.0
[2020-06-10] MEDS ORDERED: PROPOFOL IV EMULSION 10 MG/ML 20 ML VIAL IV ONE (08:28)
[2020-06-10] MEDS ORDERED: GLYCOPYRROLATE 0.2 MG/ML VIAL ONE ×2 (08:28→12:25)
[2020-06-10] MEDS ORDERED: MIDAZOLAM HCL 1 MG/ML 2ML VIAL ONE (08:28)
[2020-06-10] MEDS ORDERED: LIDOCAINE HCL 2% 2 ML VIAL/AMP(20MG/ML) INFIL ONE (08:28)
[2020-06-10] MEDS ORDERED: ONDANSETRON INJ 2 MG/ML 2 ML VIAL ONE (08:28)
[2020-06-10] MEDS ORDERED: ROCURONIUM BROMIDE 10 MG/ML 5 ML VIAL IV ONE (08:28)
[2020-06-10] MEDS ORDERED: NEOSTIGMINE METHYLSULFATE 5 MG/5 ML SYR ONE ×2 (08:28→12:25)
[2020-06-10] MEDS ORDERED: fentaNYL citrate 100 MCG/2 ML VIAL ONE ×2 (08:28→08:31)
[2020-06-10] MEDS ORDERED: DEXAMETHASONE SOD INJ 4 MG/ML VIAL ONE (08:28)
[2020-06-10] MEDS ORDERED: ePHEDrine sulfate 50 MG/ML AMP IV PRN (11:30)
[2020-06-10] MEDS ORDERED: ATROPINE SULFATE 0.1 MG/ML 10ML SYR IV PRN (11:30)
[2020-06-10] MEDS ORDERED: PROMETHAZINE HCL 12.5 MG in SODIUM CHLORIDE 0.9% 50 ML IV PRN (11:30)
[2020-06-10] MEDS ORDERED: ONDANSETRON INJ 2 MG/ML 2 ML VIAL IV PRN (11:30)
--- NOTE | 2020-06-10 11:30 | Anesthesiology Consultation ---
Date of Service June 10, 2020 Assessment & Plan ASA ASA2 Proposed Anesthesia Anesthesia Type: General Risk / Benefits Reviewed With: PT / POA / Parent / Guardian, Accepts Plan and Informed Consent Obtained History Surgery Operation Date: 06/10/20 07:00 Proposed Procedures p Laparoscopic Cholecystectomy - Mahendra Pierre DO Height/Weight Height: 6 ft Weight: 81.6 kg Allergies Allergy/AdvReac Type Severity Reaction Status Date / Time No Known Allergies Allergy Verified 06/09/20 10:17 Medications Home Medications Medication Instructions Recorded Confirmed Last Taken multivitamin 1 tab PO QAM 02/13/19 06/09/20 04/11/20 pravastatin 40 mg PO HS 04/11/20 06/09/20 04/10/20 pantoprazole 40 mg tablet,delayed See Rx Instructions .ROUTE 05/04/20 06/09/20 Unknown release .COMPLEX #180 tablet [place] 3 Pack 1 pkg PO DAILY 06/09/20 06/09/20 Unknown ferrous sulfate 325 mg (65 mg 325 mg PO DAILY tab 06/09/20 06/09/20 Unknown iron) tablet hydrocodone-acetaminophen [[place]] 1 - 2 tab PO .q4-6h PRN #15 tab 06/10/20 Unknown Active Medications Generic Name Dose Route Start Last Admin Trade Name Freq PRN Reason Stop Dose Admin Lactated Ringer's 1,000 mls @ 125 mls/hr 06/09/20 19:49 06/10/20 05:43 Lr IV 07/09/20 19:48 125 mls/hr .Q8H MILES Infusion Cefazolin Sodium 2,000 mg in 15 mls @ 3.75 mls/min 06/09/20 21:00 06/10/20 04:51 Ancef 2000mg IV 06/19/20 20:59 3.75 mls/min Q8H MILES Administration Protocol NPO Date Last Intake of Fluids: 06/09/20 Time Last Intake of Fluids: 23:00 Date Last Intake of Solids: 06/09/20 Time Last Intake of Solids: 11:45 Past Medical History Medical History Bicuspid aortic valve Cancer BCC AND SCC Cardiac murmur FOLLOWED BY DR. FORMAN Degenerative disc disease Dyslipidemia Esophageal web 15 YEARS AGO DIAGNOSED Family history of prostate cancer Iron deficiency anemia Osteoarthritis Recurrent skin cancer Exercise / Class Metabolic Activity 1 > 8 Run/Swim/Ski/Tennis Past Family History Family History Mother GERD (gastroesophageal reflux disease) Past Surgical History Surgical History History of anesthesia reaction SLOW TO WAKE UP History of colonoscopy History of esophagogastroduodenoscopy (EGD) Hx of LASIK RT EYE Hx of shoulder surgery RT Past Anesthesia History No Hx of Anesthesia Complications and No Family Hx of Anesthesia Complications History of PONV No Hx of PONV and No Hx of Motion Sickness Social History Smoking Status: Never smoker Hx Alcohol Use: Yes alcohol intake frequency: holidays/special occasions only Hx Substance Use: No substance use type: does not use Review of Systems denies fever/cough/ colds/ chest pain/ SOB/ MARTA Constitutional: no fever and no chills Respiratory: no cough and no dyspnea denies MARTA Cardiovascular: no chest pain and no dyspnea on exertion Physical Exam Vital Signs Last Vital Signs Temp 36.6 C 06/10/20 11:16 Pulse 62 06/10/20 11:16 Resp 18 06/10/20 11:16 BP 141/89 H 06/10/20 11:16 Pulse Ox 100 06/10/20 11:16 ENMT Mouth: no TMJ abnormality and no dentition abnormality Thyromental Distance: > or= 3.5 Finger Breadths Mallampati Class: I Neck neck extension not limited Respiratory normal respiratory effort; no respiratory distress Auscultation: lungs clear to auscultation bilaterally Cardiovascular Rate/Rhythm: regular rate and regular rhythm Neurologic moves all extremities Psychiatric Orientation: alert and oriented x 3 Testing Laboratory Results PT 11.0 Seconds (9.0-12.0) 06/09/20 18:24 INR 1.0 (0.9-1.1) 06/09/20 18:24 APTT 27.4 Seconds (21.0-31.0) 06/09/20 18:24
[2020-06-10] MEDS ORDERED: BUPIVACAINE/EPINEPHRINE 0.25% 1:200,000 30 ML VIAL ONE (11:31)
--- NOTE | 2020-06-10 12:38 | Operative Report ---
PG Post Operative Report Pre & Post Diagnosis Operation Date: 06/10/20 07:00 Pre-Op Diagnosis: CHOLECYSTITS Post-Op Diagnosis: CHOLECYSTITS I identified the patient and participated in the time-out.: Yes Procedure Operation Date: 06/10/20 07:00 Actual Procedures p Laparoscopic Cholecystectomy(Not Applicable) - Mahendra Pierre DO Surgeon Mahendra Pierre DO Automotive Quality Manager rosalba Almanza Estimated Blood Loss 10 Findings Consistent with Post-Op Diagnosis Specimens gallbladder Description of Procedure After informed consent was obtained the patient was taken to the operating room and placed in the supine position. After successful intubation the abdomen was sterilely prepped and draped in usual fashion. A periumbilical incision was made with an 11 blade scalpel and carried down through the soft tissue using electrocautery. The anterior rectus fascia was opened using electrocautery and 2 #0 Vicryl stay sutures were placed. The peritoneum was elevated with hemostats and incised under direct vision using Metzenbaum scissors. A finger sweep was performed and a 12 mm Perez trocar was placed. The abdomen was insu fflated to 18 mmHg. The laparoscope was inserted and the abdomen was examined in 360. No gross abnormalities were identified. A subxiphoid 5 mm port and 2 right upper quadrant 5 mm ports were placed under direct vision. The patient was placed in a reverse Trendelenburg position and slightly airplaned to the left. The gallbladder was grasped and elevated superiorly and laterally. It was acutely inflammed. A small hole was made in the gallbladder by one of the graspers releasing a small amount of bile into the right upper quadrant. This was immediately suctioned and irrigated out. A [place] dissector was used to take down adhesions around the neck of the gallbladder. The cystic duct was identified and skeletonized. It was clipped twice proximally and once distally and transected using a laparoscopic scissor. In similar fashion the cystic artery was identified and skeletonized clipped and divided. There was also a small lymphatic duct which I clipped once on each side and divided as well. The gallbladder was removed from the gallbladder fossa with electrocautery. It was placed into an Endo Catch bag. Thorough irrigation was performed until all irrigant was clear. At the end of the procedure there was adequate hemostasis and no evidence of any bile leaks. A final look around the abdomen showed no other abnormalities. The gallbladder and trochars were all removed and the abdomen was desufflated. The fascia of the camera port was closed using 0 Vicryl in a [id number] fashion. All the wounds were irrigated and closed using 4-0 Monocryl. Marcaine was injected around them for postoperative analgesia and skin glue used as a dressing. The patient was awakened, extubated and transferred to recovery in stable condition. My physician's legislative assistant was present throughout the entire case... helped with prepping the patient. With exposure for trocar placement, as well as retracted the gallbladder throughout the case and also assisted with wound closure and dressing placement. I attest to the content of the Intraoperative Record and any orders documented therein. Any exceptions are noted below.
[2020-06-10] MEDS: fentaNYL citrate 100 MCG/2 ML VIAL IV PRN ×2 (13:00→13:05)
--- NOTE | 2020-06-10 13:08 | Anesthesiology Progress Note ---
Date of Service June 10, 2020 Anesthesia Post Procedure Vital Signs Vital Signs: Temp Pulse Pulse Pulse Resp BP BP 06/10/20 13:00 81 21 151/79 H 06/10/20 12:50 64 16 138/72 06/10/20 12:41 36.3 C L 86 18 145/81 H 06/10/20 11:16 36.6 C 62 18 141/89 H 06/10/20 11:00 36.6 C 60 16 128/75 06/10/20 07:23 36.6 C 68 18 137/88 06/09/20 22:55 36.6 C 57 L 14 126/70 06/09/20 19:40 36.7 C 63 14 145/79 H 06/09/20 18:00 68 20 126/80 06/09/20 16:24 36.9 C 80 18 148/87 H Pulse Ox 06/10/20 13:00 100 06/10/20 12:50 100 06/10/20 12:41 99 06/10/20 11:16 100 06/10/20 11:00 99 06/10/20 07:23 97 06/09/20 22:55 96 06/09/20 19:40 98 06/09/20 18:00 98 06/09/20 16:24 99 Pain Intensity Right Abdomen: Pain Intensity: 5 Transfer of Care Handoff Completed per policy Notes Mental Status: alert / awake / arousable and participated in evaluation Patient Amnestic to Procedure: Yes Nausea / Vomiting: adequately controlled Pain: adequately controlled Airway Patency, RR, SpO2: stable & adequate BP & HR: stable & adequate Hydration State: stable & adequate Anesthetic Complications: no major complications apparent and Pt Satisfied with anesthetic care
[2020-06-10] MEDS: HYDROmorphone INJ 2 MG/ML SYR/VIAL IV PRN ×6 (13:15→13:45)
[2020-06-10] MEDS ORDERED: HYDROCODONE/ACETAMOPHEN 5/325MG TAB PO PRN ×2 (15:36)
[2020-06-10] MEDS: HYDROmorphone INJ 1 MG/ML SYRINGE IV PRN (15:38)
[2020-06-10] MEDS: ONDANSETRON INJ 2 MG/ML 2 ML VIAL IV PRN ×2 (15:38→21:57)
[2020-06-10] MEDS ORDERED: PRAVASTATIN SOD 40 MG TAB PO SCH (21:00)
[2020-06-10] MEDS: PANTOprazole 40 MG TAB PO SCH (22:06)
[2020-06-11] MEDS: HYDROmorphone INJ 1 MG/ML SYRINGE IV PRN (00:03)
--- NOTE | 2020-06-11 07:46 | Anesthesiology Progress Note ---
Date of Service June 11, 2020 Anesthesia Post Procedure Vital Signs Vital Signs: Temp Pulse Pulse Pulse Resp BP Pulse Ox 06/11/20 03:52 36.8 C 75 18 117/69 93 06/11/20 00:13 36.5 C 82 18 111/71 97 06/10/20 18:41 36.4 C L 81 15 118/69 92 06/10/20 17:57 94 06/10/20 17:18 36.5 C 89 15 112/65 96 06/10/20 16:12 36.5 C 92 H 16 118/72 95 06/10/20 15:43 36.7 C 82 16 121/70 95 06/10/20 15:15 36.6 C 82 16 115/69 96 06/10/20 14:30 36.6 C 60 14 149/75 H 99 06/10/20 14:15 80 17 120/64 96 06/10/20 14:00 36.8 C 78 14 120/59 L 97 06/10/20 13:50 62 14 115/57 L 97 06/10/20 13:40 36.8 C 81 19 112/65 97 06/10/20 13:30 36.8 C 67 16 140/82 99 06/10/20 13:20 36.8 C 75 22 148/82 H 100 06/10/20 13:10 84 24 146/79 H 99 06/10/20 13:00 81 21 151/79 H 100 06/10/20 12:50 64 16 138/72 100 06/10/20 12:41 36.3 C L 86 18 145/81 H 99 06/10/20 11:16 36.6 C 62 18 141/89 H 100 06/10/20 11:00 36.6 C 60 16 128/75 99 Pain Intensity Right Abdomen: Pain Intensity: 6 Notes Mental Status: alert / awake / arousable and participated in evaluation Patient Amnestic to Procedure: Yes Nausea / Vomiting: adequately controlled Pain: improving with treatment Airway Patency, RR, SpO2: stable & adequate BP & HR: stable & adequate Hydration State: stable & adequate Anesthetic Complications: no major complications apparent and Pt Satisfied with anesthetic care Notes: Patient states he still "feels foggy" and "didn't come out of it until midnight". Discussed that amnestic medication can have various offsets especially with emergent surgery and to talk with RN if it didn't continue to improve.
[2020-06-11] MEDS: PANTOprazole 40 MG TAB PO SCH (08:34)
--- NOTE | 2020-06-11 10:28 | Surgery Progress Note ---
Date of Service June 11, 2020 Assessment & Plan (1) Acute cholecystitis: pod 1 doing as expected if tolerates lunch, will d/c this afternoon. instructions reviewed. Admission and Anticipated Discharge Date Admission Date: June 09, 2020 Subjective feeling better. expected discomfort. sommer breakfast. Physical Exam Physical Exam: alert. nad abd: soft. wounds look good. Results & Data ([facility]) Vital Signs (Past 12 Hours) Vital Signs Temp Pulse Pulse Resp BP Pulse Ox 06/11/20 07:55 37.0 C 67 16 105/65 96 06/11/20 03:52 36.8 C 75 18 117/69 93 06/11/20 00:13 36.5 C 82 18 111/71 97 PG Care Time/CCT Total # of Minutes Spent Total Time Spent with Patient: Total time spent is greater than 50% in coordination of care (as documented) at patient's floor/unit and/or counseling patient: Coding Level of Care Code None Diagnoses Acute cholecystitis K81.0
[2020-06-11] MEDS: LACTATED RINGER'S 1,000 ML IV SCH (10:31)
[2020-06-11] MEDS ORDERED: ACETAMINOPHEN 325 MG TAB PO PRN (10:38)
--- NOTE | 2020-06-11 13:22 | Discharge Summary ---
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 He denies fevers, shakes, chills. No N/V. He notes a poor apatite since pain began. No palliative or provocative factors noted. The pain does not radiate. He denies weight loss. No earlier satiety. He does note some loose BMS recently. Today, labs show no leukocytosis or elevation of LFTs except a slight elevation of his bilirubin. he had a CT scan of the abdomen that showed a distended GB with pericholecystic fluid concerning for cholecystitis. He was afebrile and in no distres at the saqib eof my exam. Principal Diagnosis acute cholecystitis Discharge Exam awake/alert Constitutional well developed and well nourished; no acute distress Gastrointestinal (Abdomen) Inspection/Auscultation: + abdominal surgical incision (c/d/i with dermabond in place); abdomen not distended Percussion/Palpation: abdomen soft Discharge Data Allergies Allergy/AdvReac Type Severity Reaction Status Date / Time No Known Allergies Allergy Verified 06/09/20 10:17 Consultations 06/09/20 17:13 ED Decision to Admit Stat Procedures Performed Operation Date: 06/10/20 07:00 Actual Procedures p Laparoscopic Cholecystectomy(Not Applicable) - Mahendra Pierre, DO Hospital Course (1) Acute cholecystitis: This is a 59y M who presented to the [facility] ED on 06/09/20 with complaints of right upper quadrant abdominal pain. Workup in the ED with a CT a/p revealed a mildly distended gallbladder with associated gallbladder wall thickening and mild pericholecystic inflammatory change, suspicious for an acute cholecystitis. Labs showed a WBC of 7 and LFTs unremarkable outside of a slight elevation of Tbili (1.2). Patient was admitted under surgery, made NPO with IVF, and started on IV abx. On 06/10 patient's abdominal pain persistent and LFTs overall unchanged. Decision was made to take the patient to the OR for a laparoscopic cholecystectomy with Dr. Pierre. The patient tolerated the procedure well, see op note for full details. The patient recovered in the PACU and was transferred to the surgical nursing unit. He was drowsy postoperatively related to anesthesia, otherwise no issues. On POD#1 patient was tolerating a regular diet, pain was controlled with prn medication, he was voiding spontaneously on his own, and he was ambulating without assistance. Surgical incisions were c/d/i. On 06/11 he was deemed stable for discharge to home with plans to follow up in clinic within 1-2 weeks. Total Time Total Time Spent Total Time Spent (In Minutes): 10 Discharge Plan Discharge Items Patient Disposition: Home - Self-Care Reason For Visit: CHOLECYSTITS Discharge Diagnosis: laparoscopic cholecystectomy Activity: Per Instructions section Lifting Comment: no more than 20 pounds Bathing Comment: may shower starting 06/11/20; no soaking in tubs/pools Exercise/Sports: Wait until after follow-up appointment Driving/Machine Use: do not resume driving while taking narcotics for pain Non-emergency contact: Surgeon Call non-emergency contact if: you have any medication questions, your symptoms worsen, your pain is not controlled, your pain is worsening, your pain is unusual for you, your pain is concerning for you, you have a fever, your temperature is above 101.5, your wound has increased redness, your wound has increased drainage and your wound pain has increased Follow-up/Referrals: Bhupinder El MD [Primary Care Provider] - 06/17/20 11:15 am (Arrival time is 11:05. Your appointment is with Pelon Stapleton Matthew D., DO [Surgeon] - 06/23/20 11:00 am (Please call to schedule follow up in clinic within 1-2 weeks) Diet: Regular Addtl Attending Provider Instructions: Pending Studies at Discharge: Yes Studies:: surgical pathology Stand-Alone Forms: My [facility], Opioid Pain Management, Smoking Cessation Medications and DC Order Prescriptions: New hydrocodone-acetaminophen [[place]] 5-325 mg tablet 1 - 2 tab PO .q4-6h PRN (Reason: pain, for initial therapy, max 6 tabs per day) Qty: 15 RF: 0 Continued pantoprazole 40 mg tablet,delayed release (DR/EC) See Rx Instructions .ROUTE .COMPLEX Qty: 180 RF: 3 ferrous sulfate [Feosol] 325 mg (65 mg iron) tablet 325 mg PO DAILY RF: 0 multivitamin Tablet 1 tab PO QAM RF: 0 [place] 3 Pack 1 pkg PO DAILY RF: 0 pravastatin 40 mg tablet 40 mg PO HS RF: 0 Discharge Orders: Discharge Order (Routine); Ordered 06/11/20 Ordered By: Michelle Ramos/Other Patient Handouts: After Gallbladder Surgery Admission Data Admit Date/Time: 06/09/20 18:38 Attending Provider: Mahendra Pierre Admit Provider: Mahendra Pierre Primary Care Provider: Bhupinder El Other Providers: Mahendra Pierre Other Interventions: Discharge Summary Assessment (RN) Last Done: 06/11/20 10:41 Coding Level of Care Code D/C Day Management <30 mins Diagnoses Acute cholecystitis K81.0
== END 2020-06-11 14:39 | disposition home or self-care (01) ==
LOC: ED 16:21 → 3N 16:21